=== PATIENT | male | born 2000 | race Caucasian/White ===

== ENCOUNTER 2020-05-19 14:19 | Outpatient (REF) | payer MEDICAID, SELFPAY | END 2020-05-19 14:20 | disposition home or self-care (01) | LOC: HO.LAB 14:19 | PROVIDERS: Visit Provider Internal Medicine | DX: Z20.822 Contact with and (suspected) exposure to COVID-19 (principal) | CPT/HCPCS: 36415; C9803; U0003; U0005 ==

== ENCOUNTER 2020-12-27 08:19 | Emergency (ER) | payer MEDICAID, SELFPAY ==
[2020-12-27 08:21] VITALS: BP 114/76; PULSE 75; RESP 20; TEMP 36.8; O2SAT 98; BMI 22.1
[2020-12-27 09:18] LABS: Strep A Nucleic Acid Negative (Negative)
--- NOTE | 2020-12-27 09:43 | ED.GENADULT ---
HPI - General Adult General Chief complaint: General Medical Stated complaint: sore throat Time Seen by Provider: 12/27/20 09:38 Source: patient Mode of arrival: ambulatory Limitations: no limitations History of Present Illness HPI narrative: 20-year-old male, no known medical history presents to the emergency department with sore throat X 1 week. Patient states the pain started to the left side of his neck, and migrated into his throat. He says the pain is worse at night, and he states that he feels a sell his swallowing something at night, like mucousy. Pain is also worse with swallowing and worse with speaking. He states he is currently in school, and working complaint denies any sick contacts. He is vaccinated against COVID-19. He denies shortness of breath, fevers, chills, ear pain, abdominal pain, rhinorrhea. No recent dental procedures. MD complaint: sore throat Onset (ago): week(s) (1) Radiation: non-radiation Severity: moderate Quality: burning Pain Consistency: constant Relieving factors: none Exacerbating factors: none Associated symptoms: denies other symptoms Treatments prior to arrival: none Related Data Previous Rx's Medication Instructions Recorded azithromycin 250 mg tablet See Rx Instructions .ROUTE 12/27/20 (Zithromax Z-Salvador) .COMPLEX #6 tab dexamethasone 6 mg tablet 12 mg PO ONCE #2 tab 12/27/20 (Decadron) Allergies Allergy/AdvReac Type Severity Reaction Status Date / Time No Known Allergies Allergy Unverified 11/11/19 17:02 Review of Systems Review of Systems: Constitutional : No Weight loss, No Fever, No Chills, No Night Sweats, No Fatigue, No Malaise ENT/Mouth : No Hearing loss, No Ear Pain, No Nasal Congestion, No Sinus Pain, No Hoarseness, + sore throat, No Rhinorrhea, No Swallowing Difficulty Eyes: No Eye Pain, No Swelling, No Redness, No Foreign Body, No Discharge, No Vision Changes Cardiovascular : No Chest Pain, No SOB, No Dyspnea on Exertion, No Orthopnea, No Edema, No Palpitations Respiratory : No Cough, No Sputum, No Wheezing, No Smoke Exposure, No Dyspnea Gastrointestinal : No Nausea, No Vomiting, No Diarrhea, No Constipation, No abdominal Pain, Genitourinary : no irregular bleeding, No Dysuria, No Urinary Frequency/urgency Musculoskeletal : No joint pain, No Myalgias, No Joint Swelling Skin : No Skin Lesions, No rash Yes all other systems are reviewed and are negative [facility] Past Medical History Attestation statement: The following information was validated with the patient. Medical History No known health problems Social History Social History Advance Directives: Yes Advance Directives Information Provided: Yes Advance Directives on File: No Physical Exam Vital Signs: Vital Signs: Last Vital Signs Temp 98.3 F 12/27/20 08:21 Pulse 75 12/27/20 08:21 Resp 20 12/27/20 08:21 BP 114/76 12/27/20 08:21 Pulse Ox 98 12/27/20 08:21 Body Mass Index 22.1 vital signs have been reviewed as normal and appeared to be correct. Blood pressure normal. Heart rate normal. Respiration rate normal. Temperature normal. Oxygen saturation normal. Appearance: Alert. Oriented X3. No acute distress. Speaking in full sentences, and controlling secretions well. Head: Normal external exam. Normocephalic. Atraumatic. No Zamudio signs noted. No raccoon eyes noted Eyes: PERRLA. EOMI. Conjunctiva and sclera normal. Eyelids normal. ENT: EAC normal. TM's Normal. Posterior pharynx mildly erythematous no exudate is noted. Uvula midline. Moist mucous membranes. No trismus noted. No drooling noted. No muffled voice noted. Neck: Normal inspection. Neck supple. FROM. No adenopathy. Thyroid Normal. No meningeal signs. No neck mass noted. CVS: Normal heart rate and rhythm. Heart sound normal. Pulses normal throughout. No murmurs/rales/gallops. Respiratory: No respiratory distress. Painless inspiration. Breath sounds normal. No wheezes/rales/rhonchi noted. Chest nontender. No accessory muscle usage noted or decreased air movement noted. Abdomen: Soft and nontender. Bowel sounds normal in all 4 quadrants. Skin: Skin warm and dry. Normal skin color. Normal skin turgor. No rashes/lesions/lacerations noted. Extremities: No lower extremity edema. Extremities exhibit normal range of motion. Extremities nontender. Neuro: Oriented X 3. No motor deficit. No sensory deficit. Reflexes normal. Normal steady gait. No focal neuro deficits noted. Vascular: + radial pulses/+ 2 distal pedal pulses/+2 dorsalis pedis b/l. Normal cap refill. No cyanosis noted to upper extremity nails and lower extremity toes nails. Medical Decision Making [facility] Narrative Medical decision making narrative: 5000 20-year-old male, no known medical history presents to the emergency department with sore throat that is been progressively worsening over the past week. Denies sick contacts. Vaccinated against COVID-19. Denies shortness of breath, fevers, chills, nausea, vomiting. Upon physical examination lungs are clear, S1 and S2 appreciated free of murmurs. Oropharynx shows moist mucous membranes, free of edema, erythema, exudates. Unlikely that this is strep pharyngitis, does not meet Roxie's criteria. No lymphadenopathy. Unable to visualize an abscess in the oropharynx, unlikely peritonsillar abscess. Uvula is midline. Patient is sitting comfortably at the bedside, in no acute distress, speaking in full sentences, controlling oral secretions. Plan at this time is to give decadron here X1. He will be sent home on p.o. antibiotics. He has been advised return to the emergency department with new or worsening symptoms, and follow up with his primary care provider. Safe for discharge home. Lab Data Labs: Lab Results 12/27/20 12/27/20 Range/Units 08:53 09:43 COVID-19 (USHA) Negative (Negative) COVID-19 Clin Com See Note S. pyogenes GrpA JAC Negative (Negative) Discharge Plan Discharge Clinical Impression: Acute bacterial pharyngitis Patient Disposition: Home, Self-Care Instructions: Pharyngitis (ED), Upper Respiratory Infection (ED) Additional Instructions: Today you tested negative for strep throat. Your COVID test is pending will call if + Follow-up with your primary care provider Take medications as prescribed, remember do not skip any doses on your antibiotics, take them to their entirety, even if you are feeling better. Return to the emergency department with new or worsening symptoms such as severe sore throat, fevers, chills or if you are unable to swallow. Prescriptions: New azithromycin [Zithromax Z-Salvador] 250 mg tablet See Rx Instructions .ROUTE .COMPLEX Qty: 6 RF: 0 dexamethasone [Decadron] 6 mg tablet 12 mg PO ONCE Qty: 2 RF: 0 Referrals: Bel Stevens DO [Primary Care Provider] - 2 days Stand Alone Forms: Work/School Release Interventions: ED Discharge Assessment Last Done: 12/27/20 10:03 Discharge Date/Time: 12/27/20 10:04
[2020-12-27 10:04] LABS: COVID-19 Test Negative (Negative); IDNOW Serial# 9DD0AD1C
== END 2020-12-27 10:04 | disposition home or self-care (01) ==
PROVIDERS: Physician Assistant Medical; Emergency Provider Emergency Medicine; PCP Pediatrics
DX: J02.8 Acute pharyngitis due to other specified organisms (principal); Z20.822 Contact with and (suspected) exposure to COVID-19
CPT/HCPCS: 36415; 87635; 87651; 99283

== ENCOUNTER 2021-03-18 15:32 | Emergency (ER) | payer MEDICAID, SELFPAY ==
[2021-03-18 15:42] VITALS: BP 131/74; PULSE 76; TEMP 36.8; O2SAT 98; BMI 21.5
[2021-03-18 15:54] LABS: MANUAL DIFF FLAG NO
[2021-03-18 15:56] LABS: Basophils Percent Auto 0.6 % (0-2); Eosinophils Absolute Auto 0.1 X10*3/uL (0.0-0.4); Eosinophils Percent Auto 0.9 % (0-4); Hematocrit 47.7 % (42.0-52.0); Hemoglobin 16.6 g/dl (14.0-18.0); Imm Gran Abs Auto 0.01 X10*3/uL (0.00-0.03); Imm Gran Pct Auto 0.2 % (0.0-0.4); Lymphocytes Absolute Auto 2.4 X10*3/uL (1.2-4.9); Lymphocytes Percent Auto 35.9 % (20-40); Mean Corpuscular HGB Conc 34.8 g/dl (31.0-36.0); Mean Corpuscular Hemoglobin 30.5 pg (27.0-33.0); Mean Corpuscular Volume 87.7 fL (80.0-98.0); Mean Platelet Volume 9.8 fL (9.4-12.4); Monocytes Absolute Auto 0.5 X10*3/uL (0.1-1.2); Monocytes Percent Auto 7.8 % (2-11); Neutrophils Absolute Auto 3.6 x10*3/uL (2.0-8.3); Neutrophils Percent Auto 54.6 % (45-73); Platelet Count 222 X10*3/uL (160-400); Red Blood Count 5.44 X10*6/uL (4.60-5.80); Red Cell Distribution Width 11.9 % (11.0-16.0); White Blood Count 6.6 X10*3/uL (4.8-10.8)
[2021-03-18 16:10] LABS: Anion Gap 13 (12-20); Blood Urea Nitrogen 12 mg/dL (9-16); Calcium 9.9 mg/dL (8.4-10.2); Carbon Dioxide 27 mmol/L (22-29); Chloride 103 mmol/L (96-108); Creatinine Clr Calc Pharmacy 98.6; Estimated Glomerular Filt Rate > 60; Glucose Random 102 mg/dL (60-115); Potassium 3.9 mmol/L (3.3-5.1); Sodium 139 mmol/L (135-145)
--- NOTE | 2021-03-18 20:21 | ED_ITS ---
HPI - Abdominal Pain General Chief Complaint: Abdominal Pain Stated Complaint: abd pain Time Seen by Provider: 03/18/21 17:58 Source: patient Mode of arrival: ambulatory Limitations: no limitations History of Present Illness HPI narrative: Patient been having epigastric pain for last 2 - 3 months been constipated and today while trying to push stool he noticed bright red blood in the commode with increased rectal patient was seen at [facility] 2 weeks ago for same. No nausea no vomiting , no fever no chills or urinary complaints Related Data Previous Rx's Medication Instructions Recorded azithromycin 250 mg tablet See Rx Instructions .ROUTE 12/27/20 (Zithromax Z-Salvador) .COMPLEX #6 tab dexamethasone 6 mg tablet 12 mg PO ONCE #2 tab 12/27/20 (Decadron) hydrocortisone acetate 25 mg 25 mg [place] BID #1 ea 03/18/21 rectal suppository (Anusol-HC) omeprazole 40 mg capsule,delayed 40 mg PO DAILY #30 cap 03/18/21 release sucralfate 1 gram tablet 1 g PO TID #90 tab 03/18/21 Allergies Allergy/AdvReac Type Severity Reaction Status Date / Time No Known Allergies Allergy Unverified 11/11/19 17:02 Review of Systems Review of Systems Yes all other systems are reviewed and are negative Physical Exam 2 Vital Signs: Vital Signs: Last Vital Signs Temp 97.6 F 03/18/21 20:25 Pulse 80 03/18/21 20:25 Resp 16 03/18/21 20:25 BP 113/70 03/18/21 20:25 Pulse Ox 99 03/18/21 20:25 BMI result Body Mass Index 21.5 Appearance: Alert. Oriented X3. No acute distress. Eyes: No pallor icterus ENT: Pharynx normal. Oral Mucosa moist Neck: Normal inspection. Neck supple. CVS: Normal heart rate and rhythm. Pulses normal. Respiratory: No respiratory distress. Equal air entry bilateral, no wheezing/rales/rhonchi Abdomen: Soft, mild tenderness in epigastric area Bowel sounds are present, no mass palpable, no CVA tenderness Skin: Skin warm and dry. Normal skin color. Normal skin turgor. Extremities: No lower extremity edema. No calf tenderness Neuro: Oriented X 3. MDM - Abdominal Pain MDM Narrative Medical decision making narrative: Patient with gastritis symptoms with anxiety and constipation with likely hemorrhoids causing the bleed labs are stable discharged patient home on [facility] Lab Data Attestation: I reviewed the patient's lab results. Result diagrams: 03/18/21 15:50 03/18/21 15:50 Labs: Lab Results 03/18/21 03/18/21 Range/Units 15:50 15:50 WBC 6.6 (4.8-10.8) X10*3/uL RBC 5.44 (4.60-5.80) X10*6/uL Hgb 16.6 (14.0-18.0) g/dl Hct 47.7 (42.0-52.0) % MCV 87.7 (80.0-98.0) fL MCH 30.5 (27.0-33.0) pg MCHC 34.8 (31.0-36.0) g/dl RDW 11.9 (11.0-16.0) % Plt Count 222 (160-400) X10*3/uL MPV 9.8 (9.4-12.4) fL Immature Gran % (Auto) 0.2 (0.0-0.4) % Neut % (Auto) 54.6 (45-73) % Lymph % (Auto) 35.9 (20-40) % [place] % (Auto) 7.8 (2-11) % Eos % (Auto) 0.9 (0-4) % Baso % (Auto) 0.6 (0-2) % Lymph # (Auto) 2.4 (1.2-4.9) X10*3/uL [place] # (Auto) 0.5 (0.1-1.2) X10*3/uL Eos # (Auto) 0.1 (0.0-0.4) X10*3/uL Baso # (Auto) 0.0 (0.0-0.2) X10*3/uL Abs Immat Gran (auto) 0.01 (0.00-0.03) X10*3/uL Absolute Neuts (auto) 3.6 (2.0-8.3) x10*3/uL Absolute Nucleated RBC 0.000 (0.0-0.012) X10*3/uL Nucleated RBC % (auto) 0.0 (0.0-0.2) /100WBC Sodium 139 (135-145) mmol/L Potassium 3.9 (3.3-5.1) mmol/L Chloride 103 (96-108) mmol/L Carbon Dioxide 27 (22-29) mmol/L Anion Gap 13 (12-20) BUN 12 (9-16) mg/dL Creatinine 1.15 (0.5-1.4) mg/dL Estim Creat Clear Calc 98.6 Estimated GFR > 60 Random Glucose 102 (60-115) mg/dL Calcium 9.9 (8.4-10.2) mg/dL Discharge Plan Discharge Clinical Impression: Hemorrhoids, internal, with bleeding Chronic gastritis Qualifiers: Gastritis type: unspecified gastritis Gastritis bleeding: without bleeding Qualified Code(s): K29.50 - Unspecified chronic gastritis without bleeding Patient Disposition: Home, Self-Care Instructions: Gastritis (ED), Hemorrhoids (ED) Additional Instructions: Do not eat fried food Take medication for gastritis and hemorrhoids as advised Take MiraLax Stool softener for constipation as prescribed Prescriptions: New omeprazole 40 mg capsule,delayed release(DR/EC) 40 mg PO DAILY Qty: 30 RF: 0 sucralfate 1 gram tablet 1 g PO TID Qty: 90 RF: 0 hydrocortisone acetate [Anusol-HC] 25 mg suppository 25 mg [place] BID Qty: 1 RF: 0 No Action azithromycin [Zithromax Z-Salvador] 250 mg tablet See Rx Instructions .ROUTE .COMPLEX Qty: 6 RF: 0 dexamethasone [Decadron] 6 mg tablet 12 mg PO ONCE Qty: 2 RF: 0 Interventions: ED Discharge Assessment Last Done: 03/18/21 20:52 Discharge Date/Time: 03/18/21 20:52 [facility] Past Medical History Medical History No known health problems Social History Social History Advance Directives: No Advance Directives Information Provided: No
[2021-03-18 20:25] VITALS: BP 113/70; PULSE 80; RESP 16; TEMP 36.4; O2SAT 99
[2021-03-18] MEDS: Magnesium Hydrox/Alum Hydrox 30 ML ORAL.SUSP PO (20:50)
[2021-03-18] MEDS: Lidocaine HCl Viscous 2 % 15 ML SOLUTION MUCOUS MEM (20:50)
[2021-03-18] MEDS: Omeprazole 40 MG CAPSULE.DR PO (20:50)
[2021-03-18] MEDS: Milk of Magnesia 30 ML ORAL.SUSP PO (20:50)
== END 2021-03-18 20:52 | disposition home or self-care (01) ==
PROVIDERS: Emergency Provider Internal Medicine; PCP Pediatrics
DX: K64.8 Other hemorrhoids (principal); K29.50 Unspecified chronic gastritis without bleeding; Z79.899 Other long term (current) drug therapy
CPT/HCPCS: 36415; 80048; 85025; 99283; 99284

== ENCOUNTER 2021-04-24 14:23 | Outpatient (REF) | payer MEDICAID, SELFPAY ==
--- NOTE | ~2021-04-24 | MR_ITS ---
EXAMINATION: MR BRAIN WITHOUT CONTRAST CLINICAL INFORMATION: Headaches. COMPARISON: None. TECHNIQUE: Multiplanar, multisequence imaging of the brain was performed without contrast. FINDINGS: No diffusion abnormalities are identified to suggest an acute or subacute infarct. The ventricles are normal in size. No mass effect or midline shift is seen. No brain parenchymal signal abnormality is noted. No extra-axial fluid collections are seen. The brainstem and cerebellum are normal. The gradient refocused acquisition is normal. The craniovertebral junction, marrow signal, and midline structures are normal. The major intracranial flow voids at the level of the solomon of [place] are preserved. The dural venous sinus flow voids are maintained. The mastoid air cells and paranasal sinuses are well aerated. MR/MR head/brain wo con IMPRESSION: Normal MRI of the brain. No acute process.
== END 2021-04-24 14:24 | disposition home or self-care (01) ==
LOC: HO.MRI 14:23
PROVIDERS: PCP Registered Nurse; Visit Provider Registered Nurse
DX: R51.0 Headache with orthostatic component, not elsewhere classified (principal)
CPT/HCPCS: 70551

== ENCOUNTER 2021-10-10 13:10 | Outpatient (REF) | payer MEDICAID, SELFPAY ==
--- NOTE | ~2021-10-10 | US_ITS ---
EXAMINATION: US SCROTUM CLINICAL INFORMATION: Bilateral testicular pain and lumps. COMPARISON: None TECHNIQUE: A sonogram of the scrotum was performed assessing gold-scale appearance and color Doppler flow. Spectral Doppler analysis of the arterial and venous flow were performed in the testes bilaterally. FINDINGS: RIGHT: Right testicle measures 5.3 x 2.5 x 3.2 cm, volume 22.2 mL. No focal testicular parenchymal lesions are visualized. Spectral Doppler analysis of the arterial and venous flow is normal in the right testis. Right epididymal head is normal in size. No right hydrocele or varicocele is seen. Right epididymal Doppler flow is normal. LEFT: Left testicle measures 5.5 x 2.4 x 3.5 cm, volume 24.2 mL. No focal testicular parenchymal lesions are visualized. Spectral Doppler analysis of the arterial and venous flow is normal in the left testis. Left epididymal head is normal in size. There are 5 and 3 mm epididymal head cysts present. There is a small varicocele seen. No left hydrocele is seen. Left epididymal Doppler flow is normal. US/US scrotum IMPRESSION: No testicular abnormality identified. Left epididymal head cysts. Left varicocele.
== END 2021-10-10 13:11 | disposition home or self-care (01) ==
LOC: HO.US 13:10
PROVIDERS: Visit Provider Registered Nurse
DX: N50.89 Other specified disorders of the male genital organs (principal); N50.811 Right testicular pain; N50.812 Left testicular pain
CPT/HCPCS: 76870

== ENCOUNTER 2021-11-08 19:45 | Emergency (ER) | payer MEDICAID, SELFPAY ==
--- NOTE | 2021-11-08 | ECG_ITS ---
Test Reason : chest discomfort Blood Pressure : / mmHG Vent. Rate : 093 BPM Atrial Rate : 093 BPM P-R Int : 146 ms QRS Dur : 076 ms QT Int : 300 ms P-R-T Axes : 069 -30 056 degrees QTc Int : 373 ms Normal sinus rhythm with sinus arrhythmia Left axis deviation Abnormal ECG No previous ECGs available Referred By: Generic ED Physician Electronically Signed By:KARAN MERA
[2021-11-08 19:52] VITALS: BP 166/100; PULSE 90; RESP 18; TEMP 36.7; O2SAT 98; BMI 20.7
[2021-11-08 20:50] LABS: MANUAL DIFF FLAG NO
[2021-11-08 20:55] LABS: Carbon Monoxide POC 0.5 %
[2021-11-08 20:55] LABS: Basophils Percent Auto 0.4 % (0-2); Carbon Monoxide Refer to POC result; Eosinophils Absolute Auto 0.1 X10*3/uL (0.0-0.4); Eosinophils Percent Auto 2.4 % (0-4); Hematocrit 47.7 % (42.0-52.0); Hemoglobin 16.2 g/dl (14.0-18.0); Imm Gran Abs Auto 0.05 X10*3/uL (0.00-0.03); Imm Gran Pct Auto 0.9 % (0.0-0.4); Lymphocytes Absolute Auto 0.6 X10*3/uL (1.2-4.9); Lymphocytes Percent Auto 10.1 % (20-40); Mean Corpuscular Hemoglobin 29.3 pg (27.0-33.0); Mean Corpuscular Volume 86.3 fL (80.0-98.0); Mean Platelet Volume 9.5 fL (9.4-12.4); Monocytes Absolute Auto 0.6 X10*3/uL (0.1-1.2); Monocytes Percent Auto 10.6 % (2-11); Neutrophils Absolute Auto 4.1 x10*3/uL (2.0-8.3); Neutrophils Percent Auto 75.6 % (45-73); Platelet Count 195 X10*3/uL (160-400); Red Blood Count 5.53 X10*6/uL (4.60-5.80); Red Cell Distribution Width 11.8 % (11.0-16.0); White Blood Count 5.5 X10*3/uL (4.8-10.8)
[2021-11-08 21:17] LABS: Anion Gap 16 (12-20); Blood Urea Nitrogen 12 mg/dL (9-16); Calcium 9.7 mg/dL (8.4-10.2); Carbon Dioxide 25 mmol/L (22-29); Chloride 105 mmol/L (96-108); Creatinine Clr Calc Pharmacy 102.8; Estimated Glomerular Filt Rate > 60; Glucose Random 114 mg/dL (60-115); Potassium 4.3 mmol/L (3.3-5.1); Sodium 142 mmol/L (135-145)
[2021-11-08 21:25] LABS: Troponin-I High Sensitivity < 3.5 ng/L (<3.5-35.0)
--- NOTE | 2021-11-09 00:41 | ED.HA ---
HPI - Headache General Chief Complaint: Dizziness Stated Complaint: HEADACHE, CHEST DISCOMFORT Time Seen by Provider: 11/08/21 19:56 History of Present Illness HPI Narrative: Patient is a 21-year-old male presents today with having headache that is frontal. Associated with some dizziness while patient was trying to get into a car. He was worried that he got carbon monoxide poisoning. The car was parked outside. He did smell something strange in the car. He denies any fever chills. Denies any focal weakness. Denies any nausea vomiting. The headache has since subsided. Patient has no symptom at this time. No sudden in the family. No fever no chills no neck pain. Related Data Previous Rx's Medication Instructions Recorded azithromycin 250 mg tablet See Rx Instructions PO .COMPLEX #6 12/27/20 (Zithromax Z-Salvador) tabs dexamethasone 6 mg tablet 12 mg PO ONCE #2 tabs 12/27/20 (Decadron) hydrocortisone acetate 25 mg 25 mg [place] BID #1 ea 03/18/21 rectal suppository (Anusol-HC) omeprazole 40 mg capsule,delayed 40 mg PO DAILY #30 caps 03/18/21 release sucralfate 1 gram tablet 1 g PO TID #90 tabs 03/18/21 ibuprofen 400 mg tablet 400 mg PO Q6H PRN pain #20 tabs 11/09/21 Allergies Allergy/AdvReac Type Severity Reaction Status Date / Time No Known Allergies Allergy Verified 11/08/21 19:55 Review of Systems Review of Systems: No chest pain or shortness breath no nausea no vomiting Yes all other systems are reviewed and are negative [facility] Past Medical History Attestation statement: The following information was validated with the patient. Medical History No known health problems Physical Exam Vital Signs: Vital Signs: Last Vital Signs Temp 98.1 F 11/08/21 19:52 Pulse 90 11/08/21 19:52 Resp 18 11/08/21 19:52 BP 166/100 H 11/08/21 19:52 Pulse Ox 98 11/08/21 19:52 O2 Del Method 11/08/21 19:52 BMI result Body Mass Index 20.7 Appearance: Alert. Oriented X3. No acute distress. Eyes: Pupils equal, round and reactive to light. ENT: Pharynx normal. Neck: Normal inspection. Neck supple. No lymph nodes noted. No crepitus CVS: Normal heart rate and rhythm. Pulses normal. Normal S1 and S2 Respiratory: No respiratory distress. Breath sounds normal. No Wheezing. No rales Abdomen: Soft and nontender. No rigidity. No distention. good BS x4 Skin: Skin warm and dry. Normal skin color. Normal skin turgor. Extremities: No lower extremity edema. Neurovascular intact to all extremities. No Lacerations. No Rash Neuro: Oriented X 3. No motor deficit. No sensory deficit. Moving all extermities. No slurred speech MDM - Headache MDM Narrative Medical decision making narrative: Well-appearing neurologically intact. Symptom has resolved. Carbon monoxide level was normal. A 0.5. Will discharge patient home close follow-up on an outpatient Lab Data Result diagrams: 11/08/21 20:46 11/08/21 20:46 Labs: Lab Results 11/08/21 11/08/21 11/08/21 Range/Units 20:46 20:46 20:46 WBC 5.5 (4.8-10.8) X10*3/uL RBC 5.53 (4.60-5.80) X10*6/uL Hgb 16.2 (14.0-18.0) g/dl Hct 47.7 (42.0-52.0) % MCV 86.3 (80.0-98.0) fL MCH 29.3 (27.0-33.0) pg MCHC 34.0 (31.0-36.0) g/dl RDW 11.8 (11.0-16.0) % Plt Count 195 (160-400) X10*3/uL MPV 9.5 (9.4-12.4) fL Immature Gran % (Auto) 0.9 H (0.0-0.4) % Neut % (Auto) 75.6 H (45-73) % Lymph % (Auto) 10.1 L (20-40) % Nelson % (Auto) 10.6 (2-11) % Eos % (Auto) 2.4 (0-4) % Baso % (Auto) 0.4 (0-2) % Lymph # (Auto) 0.6 L (1.2-4.9) X10*3/uL Nelson # (Auto) 0.6 (0.1-1.2) X10*3/uL Eos # (Auto) 0.1 (0.0-0.4) X10*3/uL Baso # (Auto) 0.0 (0.0-0.2) X10*3/uL Abs Immat Gran (auto) 0.05 H (0.00-0.03) X10*3/uL Absolute Neuts (auto) 4.1 (2.0-8.3) x10*3/uL Absolute Nucleated RBC 0.000 (0.0-0.012) X10*3/uL Nucleated RBC % (auto) 0.0 (0.0-0.2) /100WBC Carboxyhemoglobin % % Sodium 142 (135-145) mmol/L Potassium 4.3 (3.3-5.1) mmol/L Chloride 105 (96-108) mmol/L Carbon Dioxide 25 (22-29) mmol/L Anion Gap 16 (12-20) BUN 12 (9-16) mg/dL Creatinine 1.02 (0.5-1.4) mg/dL Estim Creat Clear Calc 102.8 Estimated GFR > 60 Random Glucose 114 (60-115) mg/dL Calcium 9.7 (8.4-10.2) mg/dL Troponin I High Sens < 3.5 (<3.5-35.0) ng/L 11/08/21 Range/Units 20:50 WBC (4.8-10.8) X10*3/uL RBC (4.60-5.80) X10*6/uL Hgb (14.0-18.0) g/dl Hct (42.0-52.0) % MCV (80.0-98.0) fL MCH (27.0-33.0) pg MCHC (31.0-36.0) g/dl RDW (11.0-16.0) % Plt Count (160-400) X10*3/uL MPV (9.4-12.4) fL Immature Gran % (Auto) (0.0-0.4) % Neut % (Auto) (45-73) % Lymph % (Auto) (20-40) % Nelson % (Auto) (2-11) % Eos % (Auto) (0-4) % Baso % (Auto) (0-2) % Lymph # (Auto) (1.2-4.9) X10*3/uL Nelson # (Auto) (0.1-1.2) X10*3/uL Eos # (Auto) (0.0-0.4) X10*3/uL Baso # (Auto) (0.0-0.2) X10*3/uL Abs Immat Gran (auto) (0.00-0.03) X10*3/uL Absolute Neuts (auto) (2.0-8.3) x10*3/uL Absolute Nucleated RBC (0.0-0.012) X10*3/uL Nucleated RBC % (auto) (0.0-0.2) /100WBC Carboxyhemoglobin % 0.5 % Sodium (135-145) mmol/L Potassium (3.3-5.1) mmol/L Chloride (96-108) mmol/L Carbon Dioxide (22-29) mmol/L Anion Gap (12-20) BUN (9-16) mg/dL Creatinine (0.5-1.4) mg/dL Estim Creat Clear Calc Estimated GFR Random Glucose (60-115) mg/dL Calcium (8.4-10.2) mg/dL Troponin I High Sens (<3.5-35.0) ng/L Discharge Plan Discharge Clinical Impression: Headache Patient Disposition: Home, Self-Care Instructions: Acute Headache (ED) Prescriptions: New ibuprofen 400 mg tablet 400 mg PO Q6H PRN (Reason: pain) Qty: 20 0RF No Action azithromycin [Zithromax Z-Salvador] 250 mg tablet See Rx Instructions .ROUTE .COMPLEX Qty: 6 0RF Rx Instructions: For 250 mg dose pack: take 500 mg today (day 1), then 250 mg for 4 days (days 2-5) dexamethasone [Decadron] 6 mg tablet 12 mg PO ONCE Qty: 2 0RF omeprazole 40 mg capsule,delayed release(DR/EC) 40 mg PO DAILY Qty: 30 0RF sucralfate 1 gram tablet 1 g PO TID Qty: 90 0RF hydrocortisone acetate [Anusol-HC] 25 mg suppository 25 mg [place] BID Qty: 1 0RF [facility]
[2021-11-09 00:58] VITALS: BP 145/86; PULSE 78; RESP 18; O2SAT 99
== END 2021-11-09 01:30 | disposition home or self-care (01) ==
PROVIDERS: Emergency Provider Emergency Medicine Emergency Medical Services
DX: R51.9 Headache, unspecified (principal)
CPT/HCPCS: 36415; 80048; 82375; 84484; 85025; 93005; 99283; 99284

== ENCOUNTER 2022-10-02 15:40 | Outpatient (REF) | payer MEDICAID, SELFPAY ==
--- NOTE | ~2022-10-02 | XR_ITS ---
EXAMINATION: XR KNEE, LEFT CLINICAL INFORMATION: Pain Chronic worsening pain of both knees COMPARISON: None available. TECHNIQUE: Four views of the left knee. FINDINGS: No fracture or joint effusion. Alignment is anatomic. Joint spaces are maintained. 0.7 cm well-corticated ossific or calcific density is seen in the posterior-lateral knee and could represent a loose body within the knee joint. XR/XR knee LT 4V IMPRESSION: 0.7 cm well-corticated ossific or calcific density is seen in the posterior-lateral knee and could represent a loose body within the knee joint.
--- NOTE | ~2022-10-02 | XR_ITS ---
EXAMINATION: XR KNEE, RIGHT CLINICAL INFORMATION: Pain Chronic worsening pain of both knees COMPARISON: Same day left knee TECHNIQUE: Four views of the right knee. FINDINGS: No fracture. Small joint effusion. Alignment is anatomic. Joint spaces are maintained. No abnormal soft tissue calcification. XR/XR knee RT 4V IMPRESSION: No bony abnormality.
== END 2022-10-02 15:41 | disposition home or self-care (01) ==
LOC: HO.HHCX 15:40
PROVIDERS: Visit Provider Registered Nurse
DX: M25.561 Pain in right knee (principal); M25.562 Pain in left knee
CPT/HCPCS: 73564